=== PATIENT | male | born 1970 | race Two or more races ===

== ENCOUNTER 2019-06-04 13:13 | Inpatient (IN) | payer MEDICARE, MEDICAID ==
[~2019-06-04] VITALS: Ht 175.3 cm; Wt 83.1 kg
[2019-06-04 14:12] LABS: Basophils # (auto) 0.1 uL; Basophils % (auto) 0.8 % (0.0-2.0); Eosinophils # (auto) 0.4 uL; Eosinophils % (auto) 2.4 % (0.0-7.0); Hematocrit 28.5 % (41.0-53.0); Hemoglobin 8.9 g/dL (13.5-17.5); Lymphocytes # (auto) 1.3 uL; Lymphocytes % (auto) 8.6 % (10.0-50.0); Mean Corpuscular Hemoglobin 28.2 pg (28.0-32.0); Mean Corpuscular Hgb Conc. 31.3 g/dL (32.0-36.0); Monocytes # (auto) 0.7 uL; Monocytes % (auto) 4.6 % (0.0-12.0); Neutrophils # (auto) 13.1 uL; Neutrophils % (auto) 83.6 % (37.0-80.0); Platelet Count (auto) 354 10^3/uL (140-450); Red Blood Cells 3.16 10^6/uL (4.5-5.90); Red Cell Distribution Width 20.3 % (11.8-14.3); White Blood Cell 15.7 10^3/uL (4.4-10.8)
[2019-06-04] MEDS ORDERED: ETOMIDATE (2MG/ML) 20ML VIAL IV ONE ×2 (14:37→15:15)
[2019-06-04 14:38] LABS: Alanine Aminotransferase < 6 U/L (16-61); Anion Gap 8 (5-15); Blood Urea Nitrogen 35 mg/dL (7-18); Carbon Dioxide 28 mmol/L (21-32); Chloride 100 mmol/L (98-107); Glucose 96 mg/dL (74-106); Potassium 5.4 mmol/L (3.5-5.1); Sodium 136 mmol/L (136-145)
[2019-06-04 14:43] LABS: Alkaline Phosphatase 116 U/L (45-117); Aspartate Aminotransferase 17 U/L (15-37); BUN/Creatinine Ratio 7.9; Bilirubin, Total 0.5 mg/dL (0.2-1.0); GFR African American 19 mL/min; GFR Non-African American 15 mL/min; Total Protein 5.2 g/dL (6.4-8.2)
[2019-06-04] MEDS ORDERED: MORPHINE SULFATE 4 MG/ML SYR/VIAL ONE (14:55)
[2019-06-04] MEDS ORDERED: NOREPINEPHRINE 8 MG/250ML KIT 250 ML IV ONE (15:04)
[2019-06-04 15:08] LABS: INR 1.34 (0.9-1.15); Partial Thromboplastin Time 35.1 sec (23.64-32.05)
[2019-06-04] MEDS ORDERED: MORPHINE SULFATE 4 MG/ML SYR/VIAL IV ONE (15:15)
[2019-06-04] MEDS ORDERED: ALBUTEROL SULF 2.5 MG/0.5ML(0.5%) NEB SOLN NEB ONE ×2 (15:30→16:30)
[2019-06-04] MEDS ORDERED: IPRATROPIUM BROM 0.5 MG/2.5ML INH SOL NEB ONE (15:30)
[2019-06-04] MEDS ORDERED: VANCOMYCIN PER PHARMACY 0 MG IV SCH ×2 (15:45→16:30)
[2019-06-04] MEDS ORDERED: PANTOPRAZOLE 40 MG TAB PO ONE (15:45)
[2019-06-04] MEDS ORDERED: ACCU-CHEK COMFORT CURVE STRIP VI SCH (15:45)
[2019-06-04] MEDS ORDERED: DEXTROSE (50%) 50ML SYRG IV PRN (15:45)
[2019-06-04] MEDS ORDERED: cloNIDine 0.2 mg/24hr 7DAY PATCH TD ONE (15:45)
[2019-06-04] MEDS ORDERED: CLO01T (15:58)
[2019-06-04] MEDS ORDERED: MERO500I3 (15:58)
[2019-06-04] MEDS ORDERED: NIFEDIPINE (15:58)
[2019-06-04] MEDS ORDERED: ATOR40TA52 (15:58)
[2019-06-04] MEDS ORDERED: SODIUM ZIRCONIUM CYCL 10 GM PAK PO ONE (16:30)
[2019-06-04] MEDS ORDERED: NITROGLYCERIN 0.4 MG SL TAB SL PRN (16:30)
[2019-06-04] MEDS ORDERED: CALCIUM GLUC 4.65meq/50ml D5AE 50 ML IV ONE (16:30)
[2019-06-04] MEDS ORDERED: MORPHINE SULF INJ 2 MG/ML SYRINGE 1ML IV PRN (16:30)
--- NOTE | 2019-06-04 16:30 | NUR ---
REPORT Report received from Elo. Patient observed in [facility], lethargic but arousable to name. Patient is alert and oriented to self, location, and situation. Patient able to follow simple commands. Afebrile. Physical assessment performed. Vitals stable. Patient on 15 L NRB mask, oxygen saturation 97%, lung sounds coarse rhonchi with crackles noted. Left lateral chest tube in place, patent connected to single atrium suction. Bed locked in lowest position, will continue to monitor.
--- NOTE | 2019-06-04 16:50 | NUR ---
CARES/LINEN Complete linen and gown change performed. Skin assessment performed. New emanuel pad placed over wounds on sacral area. Patient repositioned, tolerated activity well. Continue to monitor.
[2019-06-04] MEDS ORDERED: ALBUTEROL SULF 2.5 MG/0.5ML(0.5%) NEB SOLN NEB PRN (17:00)
[2019-06-04] MEDS ORDERED: SODIUM CHL 0.9% 1000 ML BAG XX ONE (17:00)
[2019-06-04] MEDS ORDERED: IPRATROPIUM BROM 0.5 MG/2.5ML INH SOL NEB PRN (17:00)
[2019-06-04] MEDS ORDERED: ALBUMIN 25% 100 ML IV ONE (17:00)
--- NOTE | 2019-06-04 17:08 | NUR ---
MD VISIT Jonah PROGRESSIVE CARE NURSE at bedside assessing chest tube drainage and patency.
--- NOTE | 2019-06-04 17:10 | NUR ---
MD VISIT at bedside assessing patient. MD reviewing chart. No new orders received at this time. Will continue to monitor.
[2019-06-04] MEDS: ACCU-CHEK COMFORT CURVE STRIP VI SCH ×6 (17:13→22:02)
--- NOTE | 2019-06-04 17:15 | NUR ---
DIALYSIS barrel header at bedside. Vitals stable at this time. Pt tolerating treatment.
[2019-06-04] MEDS: HYDROmorphone HCL 2 MG/ML VL IV PRN (17:42)
--- NOTE | 2019-06-04 17:42 | NUR ---
PAIN Patient complained of 8/10 body pain, requesting pain medication. PRN medication given, will continue to monitor and reassess pain.
[2019-06-04] MEDS: SEVELAMER 800 MG TAB PO SCH (17:44)
[2019-06-04] MEDS: LEVOFLOXACIN 250MG 50 ML IV SCH (17:44)
--- NOTE | 2019-06-04 17:44 | NUR ---
OXYGENATION Decreased oxygen to 12 L NRB mask. Oxygen saturation maintaining 100%
--- NOTE | 2019-06-04 17:58 | NUR ---
OXYGENATION Decreased oxygen to 10L NRB mask. Oxygen saturation maintaining 990%
[2019-06-04] MEDS ORDERED: HYDROmorphone HCL 2 MG/ML VL IV ONE (18:00)
[2019-06-04] MEDS ORDERED: SEVELAMER 800 MG TAB PO ONE (18:00)
[2019-06-04] MEDS ORDERED: oxyCODONE ER 10 MG TAB PO ONE (18:00)
--- NOTE | 2019-06-04 18:11 | NUR ---
OXYGENATION Decreased oxygen to 8L NRB mask. Oxygen saturation maintaining 99%
--- NOTE | 2019-06-04 18:33 | NUR ---
OXYGENATION Decreased oxygen to 6L nasal cannula. Oxygen saturation maintaining 96-97%. Will continue to monitor.
--- NOTE | 2019-06-04 18:58 | NUR ---
MD VISIT at bedside assessing patients chest tube. MD does not want to touch or advance chest tube at this time. CXR ordered for AM.
--- NOTE | 2019-06-04 19:26 | NUR ---
REPORT Report given to Gisell IRVIN, care endorsed.
[2019-06-04] MEDS ORDERED: VANCOMYCIN 1GM/250ML 250 ML IV ONE (19:30)
[2019-06-04] MEDS: OXYCODONE W/ ACETAMINOPHEN 5/325MG TABLET PO PRN (20:29)
[2019-06-04] MEDS ORDERED: METOCLOPRAMIDE HCL 10 MG TAB PO ONE (22:00)
[2019-06-04] MEDS ORDERED: LABETALOL HCL 200 MG TAB PO ONE (22:00)
[2019-06-04] MEDS ORDERED: NIFEdipine ER 30 MG TAB PO ONE (22:00)
[2019-06-04 22:06] VITALS: BP 128/104
[2019-06-04] MEDS: ATORVASTATIN 20 MG TAB PO SCH (22:27)
[2019-06-04] MEDS: LEVETIRACETAM 500 MG TAB PO SCH (22:27)
--- NOTE | 2019-06-04 23:30 | NUR ---
Wound pictures: Pictures were taken of patient's wounds, but patient refused to allow RN to assess and take photo of wound to left lower buttocks.
--- NOTE | 2019-06-04 23:30 | NUR ---
Telemetry admit from ER SAMANIEGOSTEPHAN HERBERT admitted to Telemetry unit after SBAR received. Patient oriented to ROXANN GONZÁLES RN primary RN, unit, room, bed, and unit policies regarding patient care and visiting hours. Patient now on continuous telemetry monitoring, tele box #11 . Patient placed on bedside oxygen, weighed by bedscale and encouraged to call if they need something. All questions and concerns addressed, patient verbalized understanding.
[2019-06-05] MEDS: ACCU-CHEK COMFORT CURVE STRIP VI SCH ×6 (02:03→21:26)
[2019-06-05 05:00] VITALS: BP 127/67
[2019-06-05 06:28] LABS: INR 1.37 (0.9-1.15); Partial Thromboplastin Time 36.5 sec (23.64-32.05)
[2019-06-05 06:30] LABS: Basophils # (auto) 0.1 uL; Basophils % (auto) 0.6 % (0.0-2.0); Eosinophils # (auto) 0.4 uL; Eosinophils % (auto) 2.8 % (0.0-7.0); Hematocrit 27.4 % (41.0-53.0); Hemoglobin 8.7 g/dL (13.5-17.5); Lymphocytes # (auto) 1.4 uL; Lymphocytes % (auto) 9.3 % (10.0-50.0); Mean Corpuscular Hemoglobin 29.2 pg (28.0-32.0); Mean Corpuscular Hgb Conc. 31.8 g/dL (32.0-36.0); Mean Corpuscular Volume 91.9 fL (80.0-100.0); Monocytes # (auto) 0.7 uL; Monocytes % (auto) 4.4 % (0.0-12.0); Neutrophils # (auto) 12.8 uL; Neutrophils % (auto) 82.9 % (37.0-80.0); Nucleated Red Blood Cells % 0.1 %; Platelet Count (auto) 290 10^3/uL (140-450); Red Blood Cells 2.98 10^6/uL (4.5-5.90); White Blood Cell 15.4 10^3/uL (4.4-10.8)
[2019-06-05 06:37] LABS: Red Cell Distribution Width 20.5 % (11.8-14.3)
[2019-06-05 06:40] LABS: Albumin 2.1 g/dL (3.4-5.0); Anion Gap 9 (5-15); BUN/Creatinine Ratio 7.3; Blood Urea Nitrogen 25 mg/dL (7-18); Calcium 8.3 mg/dL (8.5-10.1); Carbon Dioxide 29 mmol/L (21-32); Chloride 101 mmol/L (98-107); GFR African American 25 mL/min; GFR Non-African American 21 mL/min; Glucose 144 mg/dL (74-106); Potassium 4.3 mmol/L (3.5-5.1); Sodium 139 mmol/L (136-145)
[2019-06-05 06:43] LABS: Alanine Aminotransferase < 6 U/L (16-61); Alkaline Phosphatase 109 U/L (45-117); Aspartate Aminotransferase 12 U/L (15-37); Bilirubin, Total 0.6 mg/dL (0.2-1.0); Total Protein 5.8 g/dL (6.4-8.2)
--- NOTE | 2019-06-05 07:15 | NUR ---
Spoke to Ean Mckenzie NP Hospitalist Orders received, read back and verified. Will obtain an ABG as requested. Will monitor patient.
--- NOTE | 2019-06-05 08:00 | NUR ---
Opening Note Assumed care of patient, he is A & O x4, patient is lethargic, no s/s of distress at this time. Chest tube is intact and set up at bedside to gravity, not connected to suction at this time. POC discussed with patient, he was able to inform this RN that his dialysis schedule is , , Sat. He had dialysis yesterday. Patient is on 5 L nasal cannula. He is sitting up to eat breakfast at this time. Bed is in low, locked position, bed alarm on, call light within reach. Will continue to monitor Q1h and PRN.
[2019-06-05 09:00] VITALS: BP 140/63
[2019-06-05] MEDS: SEVELAMER 800 MG TAB PO SCH ×3 (09:38→18:55)
[2019-06-05] MEDS: LEVETIRACETAM 500 MG TAB PO SCH ×2 (09:39→21:26)
[2019-06-05] MEDS: ASPirin-EC 81 mg tab PO SCH (09:39)
[2019-06-05] MEDS: LISINOPRIL 10 MG TAB PO SCH ×2 (09:39→21:26)
[2019-06-05] MEDS: PANTOPRAZOLE 40 MG TAB PO SCH (09:41)
[2019-06-05] MEDS: ENOXAPARIN SOD 30 MG/0.3 ML SYRINGE SC SCH (09:41)
[2019-06-05] MEDS: B-COMPLEX W/ C & FOLIC ACID(NEPHROVITE TAB) PO SCH (09:41)
[2019-06-05] MEDS: HYDROmorphone HCL 2 MG/ML VL IV PRN ×2 (09:42→18:54)
[2019-06-05] MEDS ORDERED: B-COMPLEX W/ C & FOLIC ACID(NEPHROVITE TAB) PO ONE (10:00)
--- NOTE | 2019-06-05 10:00 | NUR ---
Patient refuses to be turned to offload pressure, he does not want to have a pillow wedge. Will continue to attempt and offload patient sacral region at a later time. Will make sure to recommend a specialty mattress to wound care to be ordered.
--- NOTE | 2019-06-05 10:30 | NUR ---
WOUND CARE NOTE: IN TO SEE PATIENT AT THIS TIME PER WOUND CARE CONSULT REQUEST. PATIENT WAS NOTED UPON ADMIT TO HAVE MULTIPLE WOUNDS. WOUND PHOTOGRAPHS TAKEN AT THAT TIME BY BEDSIDE NURSE FOR REFERENCE, WOUND CONSULT ORDERED. PATIENT ADMITTED TO [facility] WITH DIAGNOSIS OF ACUTE RESPIRATORY FAILURE. CURRENT BOB SCORE IS 14. PATIENT HAS HISTORY WITH DM, CHRONIC RENAL FAILURE WITH NEED FOR DIALYSIS, STAGE 4 PRESSURE ULCER TO SACRUM. PATIENT IS NON AMBULATORY, MAX ASSIST FOR HIS ADL'S. HE IS RESISTANT TO TEACHING AT THIS POINT. PATIENT IS NOTED TO HAVE 2 WELL HEALED BKA STUMPS TO BLE. HE HAS HAD SURGICAL CLOSURE OF HIS STAGE 4 PRESSURE ULCER, WITH INTACT SUTURED INCISION NOTED TO MEDIAL SACRUM. WOUND IS DRAINING LIGHT AMOUNT OF SEROUS DRAINAGE WITH MILD ODOR HE HAS MASD WITH SKIN EROSION TO BILATERAL LOWER BUTTOCKS, AND STAGE 2 PRESSURE INJURY TO LEFT LOWER BUTTOCKS. ZGUARD APPLIED. MIDLINE ABDOMEN NOTED TO HAVE A 11 CM SURGICAL INCISION THAT IS STAPLED, WELL APPROXIMATED, LEFT OPEN TO AIR. ORDERED SPECIALTY AIR MATTRESS. PATIENT TO BE PLACED, PENDING DELIVERY BY NICOLE GARIBAY. RECOMMEND: FREQUENT TURN SCHEDULE Q 2 HOURS, PRN CONDITION PERMITS, WITH PRESSURE REDISTRIBUTION USING PILLOWS/WEDGES, DAILY DRESSING CHANGE TO SACRAL INCISION, BID/PRN APPLICATION TO MASD/PRESSURE INJURY TO LOWER BUTTOCKS/PERINEUM/SCROTUM, SPECIALTY AIR MATTRESS, DIETARY CONSULT, CONTINUED MONITORING BY WOUND CARE TEAM. Addendum: 06/05/19 at 1646 by Ruma Gonzalez RN Amended: Links added.
[2019-06-05 13:00] VITALS: BP 145/51
--- NOTE | 2019-06-05 16:00 | NUR ---
US called they cannot do the US of the left lung due to the chest tube tape causing obstruction, they recommend chest xray. Will notify Dr. Blanco.
--- NOTE | 2019-06-05 16:30 | NUR ---
Paged Dr. Blanco, patient chest tube having clotting and obstructing flow to drainage. There is also a large clot, and leakage from the insertion site. Bedding changed, dressing reinforced. Patient with no s/s of distress at this time.
--- NOTE | 2019-06-05 16:51 | NUR ---
Dr. Blanco returned page, he stated "I will come and see the patient"
[2019-06-05 17:00] VITALS: BP 148/64
--- NOTE | 2019-06-05 17:10 | NUR ---
Spoke to Dr. Munson over the phone, notified him of the positive blood cultures and the chest tube management that was going on with the patient, that there was bleeding at the site and blood clots. No orders at this time.
--- NOTE | 2019-06-05 17:20 | NUR ---
Dr. Blanco at bedside, Recommending to call the ER and see if the can pull out chest tube at least or pull out and replace chest tube.Dr. Blanco states "the chest tube is no longer in appropriately." Patient is in no s/s of distress at this time, will continue to monitor. driver utility workerMattie at bedside, she stated "I will call the ER to check on availability of an MD to do the procedure."
--- NOTE | 2019-06-05 17:33 | NUR ---
Mattie RN, charge nurse called ER Spoke to the electromechanical equipment assembler in ER, there is no ER physician available at this time to change out or remove the chest tube, there will be a physician at 1900 who can do it, Dr. Olivares, recommending to call at shift change.
--- NOTE | 2019-06-05 18:00 | NUR ---
Spoke to Dr. Blanco Site Interpreter called ER charge to see what could be done about the chest tube, they recommended a CT chest. Dr. Blanco does not think it it necessary, he stated "the tube needs to be pulled out and replaced." Will notify dry house tender Venu
--- NOTE | 2019-06-05 18:20 | NUR ---
Respiratory note: ASSESSED PT FOR PRN MED NEB TX. PT IS CURRENTLY ON 5 L/M NC: HR 81, RR 18, SPO2 95%. PT SHOWS NO S/S OF SOB OR DISTRESS. MED NEB TX NOT INDICATED AT THIS TIME. PT KNOWS TO HAVE RESPIRATORY PAGED IS SOB OCCURS. WILL CONTINUE TO MONITOR.
--- NOTE | 2019-06-05 19:35 | NUR ---
Opening Shift Note Received report from Tiffanie IRVIN. Assumed care of patient, awake and alert. No S/S of distress/SOB or pain. Patient on 5L nasal canula. Chest tube insertion site is clotting, was informed from report to call ER physician to have it removed per Dr. Blanco. Bed locked in lowest position, side rails upx2, call light within reach. Instructed on POC and to call for assist PRN, will continue to monitor for changes Q1hr and PRN.
[2019-06-05] MEDS ORDERED: VANCOMYCIN 500 MG in D5W 5% 100 ML IV ONE (20:00)
--- NOTE | 2019-06-05 20:12 | NUR ---
buzzle buffer made aware of situation with chest tube. buzzle buffer called down in ER to check if ER physician can assess and take out chest tube but ER charge states that they are busy right now but will relay message to the physician. Will continue to monitor patient.
--- NOTE | 2019-06-05 20:36 | NUR ---
Spoke to Dr. Olivares and he states to order a chest xray and then call him when we get the results. Will carry out.
[2019-06-05] MEDS: ATORVASTATIN 20 MG TAB PO SCH (21:26)
[2019-06-05 22:00] VITALS: BP 132/45
--- NOTE | 2019-06-05 22:11 | NUR ---
CHEST XRAY RESULTS STILL PENDING AT THIS TIME.
--- NOTE | 2019-06-05 23:12 | NUR ---
Patient moved to a specialty mattress. Dressing on chest tube reinforced. Moderate clotting noted on site. Spoke to radiology regarding a stat read on the chest xray.
--- NOTE | 2019-06-06 00:45 | NUR ---
Dr. Olivares at bedside to remove chest tube.
[2019-06-06] MEDS: HYDROmorphone HCL 2 MG/ML VL IV PRN ×4 (01:04→22:34)
[2019-06-06] MEDS ORDERED: HYDROmorphone HCL 2 MG/ML VL IV ONE (01:15)
--- NOTE | 2019-06-06 01:24 | NUR ---
Chest tube removed, covered with steri strips, gauze and reinforced with tape. Total output is 65ml. Follow up chest x-ray in the morning. Patient tolerated well. Will continue to monitor.
[2019-06-06] MEDS: ACCU-CHEK COMFORT CURVE STRIP VI SCH ×6 (01:44→21:55)
[2019-06-06 05:09] VITALS: BP 151/53
[2019-06-06 07:10] LABS: Basophils # (auto) 0.1 uL; Hemoglobin 7.9 g/dL (13.5-17.5); Lymphocytes # (auto) 1.6 uL; Monocytes # (auto) 0.6 uL
[2019-06-06 07:11] LABS: Basophils % (auto) 0.8 % (0.0-2.0); Eosinophils # (auto) 0.9 uL; Eosinophils % (auto) 7.7 % (0.0-7.0); Mean Corpuscular Hgb Conc. 32.8 g/dL (32.0-36.0); Mean Corpuscular Volume 88.4 fL (80.0-100.0); Monocytes % (auto) 5.4 % (0.0-12.0); Neutrophils # (auto) 8.1 uL; Neutrophils % (auto) 72.1 % (37.0-80.0); Platelet Count (auto) 282 10^3/uL (140-450); Red Blood Cells 2.72 10^6/uL (4.5-5.90); Red Cell Distribution Width 19.7 % (11.8-14.3); White Blood Cell 11.2 10^3/uL (4.4-10.8)
--- NOTE | 2019-06-06 08:00 | NUR ---
Opening Shift Note Assumed care of patient, lethargic. No S/S of distress/SOB, 8/10 generalized pain. Ongoing hemodialysis. Instructed on POC and to call for assist PRN, will continue to monitor for changes Q1hr and PRN.
[2019-06-06] MEDS: SEVELAMER 800 MG TAB PO SCH ×3 (08:25→17:35)
[2019-06-06 09:00] VITALS: BP 136/60
[2019-06-06] MEDS: PANTOPRAZOLE 40 MG TAB PO SCH (10:01)
[2019-06-06] MEDS: B-COMPLEX W/ C & FOLIC ACID(NEPHROVITE TAB) PO SCH (10:01)
[2019-06-06] MEDS: ASPirin-EC 81 mg tab PO SCH (10:02)
[2019-06-06] MEDS: LEVETIRACETAM 500 MG TAB PO SCH ×2 (10:02→21:55)
[2019-06-06] MEDS: LISINOPRIL 10 MG TAB PO SCH ×2 (10:02→21:55)
[2019-06-06] MEDS: ENOXAPARIN SOD 30 MG/0.3 ML SYRINGE SC SCH (10:03)
--- NOTE | 2019-06-06 12:45 | NUR ---
Patient moved to room 234. Isolation for (+)MRSA both nares.
[2019-06-06 13:00] VITALS: BP 155/46
[2019-06-06 13:13] LABS: Hepatitis A Ab IgM Negative; Hepatitis B Core IgM Negative; Hepatitis B Surface Antigen Negative (Negative)
[2019-06-06 13:14] LABS: Hepatitis C Antibody Negative (Negative)
--- NOTE | 2019-06-06 14:00 | NUR ---
Patient been refusing to be turned to sides. Explained the risks and benefits but still patient adamantly refused. Will continue to monitor.
--- NOTE | 2019-06-06 14:39 | NUR ---
NUTRITION CONSULT/ASSESSMENT NOTES Please refer to link notes of nutrition screen form filed under the intervention section of the plan of care for further details. Est. Needs: 1800 kcal to 2150 kcal (25-30 kcal/kgBW), 85 gms to 115 gms pro (1.2-1.6 gms/kgBW d/t severe hypoalbuminemia, ESRD on HD). Will continue to monitor pertinent labs and reassess nutrient need prn Thank you for this consult. Addendum: 06/06/19 at [address] Amended: Links added.
[2019-06-06 14:42] LABS: Alanine Aminotransferase < 6 U/L (16-61); Anion Gap 4 (5-15); Aspartate Aminotransferase 9 U/L (15-37); BUN/Creatinine Ratio 6.6; Blood Urea Nitrogen 20 mg/dL (7-18); Carbon Dioxide 34 mmol/L (21-32); Chloride 107 mmol/L (98-107); GFR African American 29 mL/min; GFR Non-African American 24 mL/min; Glucose 221 mg/dL (74-106); Potassium 4.2 mmol/L (3.5-5.1); Sodium 145 mmol/L (136-145)
[2019-06-06 14:45] LABS: Alkaline Phosphatase 103 U/L (45-117); Bilirubin, Total 0.4 mg/dL (0.2-1.0); Total Protein 5.5 g/dL (6.4-8.2)
--- NOTE | 2019-06-06 15:34 | NUR ---
Respiratory note: ASSESSED PATIENT FOR PRN BREATHING TX. PATIENT IS SLEEPING AND THEN WOKE UP AND WAS AWARE. NO RESPIRATORY DISTRESS NOTED OR STATED. PATIENT IS AWARE TO HAVE RT PAGED IF BREATHING TX NEEDED. PATIENT IS ON 5 L NASAL CANNULA, TITRATED FIO2 DOWN TO 3 L NASAL CANNULA SPO2 IS MAINTAINING AT 100%. WILL CONTINUE TO MONITOR PATIENT.
[2019-06-06 17:00] VITALS: BP 153/57
--- NOTE | 2019-06-06 17:09 | NUR ---
assessment Patient is a 48 year old male who is answering questions appropriately. Per patient prior to admission he was at [facility]. Per patient he will return to [facility] on discharge. Per patient he is on dialysis T TH SAT with [facility]. I informed patient he has a right to speak to a manager social responsibility regarding all care. I informed patient he has a right to participate in any and all discharge planning. Patient does not have a POA and advanced directive. I have offered patient information on POA and advanced directives. I informed the patient the advantages and benefits of having an Advanced Directive. Patient verbalized understanding and agreed to discharge plan. Addendum: 06/06/19 at 1712 by Hetal IRVING Amended: Links added.
[2019-06-06] MEDS: LEVOFLOXACIN 250MG 50 ML IV SCH (17:40)
--- NOTE | 2019-06-06 18:09 | NUR ---
Discharge planning per consult, patient has orders to return to [facility]. Referral faxed. Patient is clear to return upon discharge. Addendum: 06/06/19 at 1810 by CAIN DAVIS Amended: Links added.
--- NOTE | 2019-06-06 18:13 | NUR ---
Discharge planning per consult, patient has orders to dc to [facility] upon discharge. Referral was faxed, placed a follow up call, spoke with Velma who advised that they will accept patient back once discharged. Addendum: 06/06/19 at 1820 by CAIN DAVIS Amended: Links added.
[2019-06-06] MEDS: OXYCODONE W/ ACETAMINOPHEN 5/325MG TABLET PO PRN (19:11)
--- NOTE | 2019-06-06 19:40 | NUR ---
Opening Shift Note Assumed care of patient, asleep at this time. Respirations even and unlabored. No S/S of distress/SOB or pain. Patient on 5L nasal canula. Bed locked in lowest position, side rails upx2, call light within reach. Instructed on POC and to call for assist PRN, will continue to monitor for changes Q1hr and PRN.
[2019-06-06 21:21] VITALS: BP 140/71
[2019-06-06] MEDS: ATORVASTATIN 20 MG TAB PO SCH (21:55)
--- NOTE | 2019-06-06 22:31 | NUR ---
Respiratory note: NO PRN TX GIVEN AT THIS TIME, NOT INDICATED. SPO2 100%, HR 73, RR 18.
[2019-06-07] MEDS: ACCU-CHEK COMFORT CURVE STRIP VI SCH ×6 (02:00→21:36)
[2019-06-07 04:33] VITALS: BP 158/64
[2019-06-07] MEDS: OXYCODONE W/ ACETAMINOPHEN 5/325MG TABLET PO PRN (06:27)
[2019-06-07] MEDS: SEVELAMER 800 MG TAB PO SCH ×3 (07:55→18:58)
[2019-06-07 08:41] VITALS: BP 158/43
[2019-06-07] MEDS: PANTOPRAZOLE 40 MG TAB PO SCH (10:10)
[2019-06-07] MEDS: B-COMPLEX W/ C & FOLIC ACID(NEPHROVITE TAB) PO SCH (10:10)
[2019-06-07] MEDS: ASPirin-EC 81 mg tab PO SCH (10:10)
[2019-06-07] MEDS: LISINOPRIL 10 MG TAB PO SCH ×2 (10:11→21:35)
[2019-06-07] MEDS: HYDROmorphone HCL 2 MG/ML VL IV PRN ×3 (10:11→20:37)
[2019-06-07] MEDS: LEVETIRACETAM 500 MG TAB PO SCH ×2 (10:11→21:35)
[2019-06-07] MEDS: ENOXAPARIN SOD 30 MG/0.3 ML SYRINGE SC SCH (10:12)
--- NOTE | 2019-06-07 10:30 | NUR ---
Patient still refuses to be turned to sides.
[2019-06-07 13:00] VITALS: BP 189/56
--- NOTE | 2019-06-07 13:06 | NUR ---
ASSESSED PT FOR MED NEB PRN TX, PT ON RA WITH SPO2 98%, HR 79, RR 16, WITH CLEAR/DIMINISHED BS. PT IN NO RESPIRATORY DISTRESS NO INDICATION FOR MED NEB TX AT THIS TIME.
--- NOTE | 2019-06-07 13:20 | NUR ---
BP-189/57, referred to Dr. Munson with orders received. Will continue to monitor.
[2019-06-07] MEDS ORDERED: NIFEdipine 10 MG CAP PO PRN ×4 (13:30→14:00)
[2019-06-07] MEDS: INSULIN LISPRO (HUMAN) 100 UNITS/ML ML SC SCH ×3 (14:00→21:35)
--- NOTE | 2019-06-07 14:06 | NUR ---
Discharge planning per consult, patient has orders to return to [facility] upon discharge. Referral faxed to [facility], placed a follow up call, spoke with Velma and was advised Addendum: 06/07/19 at 1430 by CAIN DAVIS Amended: Links added.
[2019-06-07] MEDS: NIFEdipine 10 MG CAP PO PRN (14:26)
--- NOTE | 2019-06-07 14:27 | NUR ---
Discharge planning per consult, patient has orders to dc to [facility] on discharge. Referral faxed, placed a follow up call, spoke with Velma and was advised that patient will be accepted to room [address] Arora upon discharge. Addendum: 06/07/19 at 1430 by CAIN DAVIS Amended: Links added.
[2019-06-07] MEDS: MUPIROCIN 2% OINT 15gm or 22gm EACHNOSTRI SCH ×2 (15:56→21:34)
[2019-06-07 17:00] VITALS: BP 122/45
--- NOTE | 2019-06-07 17:30 | NUR ---
Sponge bath and bed change done.
--- NOTE | 2019-06-07 17:45 | NUR ---
Change of sacral optifoam dressing done.
[2019-06-07] MEDS: Nepro With Carbsteady Vanilla 8oz Carton PO SCH (18:58)
[2019-06-07] MEDS: Pro-Stat SF 30ml Vanilla PO SCH (18:58)
--- NOTE | 2019-06-07 18:58 | NUR ---
Dr. Volodymyr Kidd-nephrology at bedside. Patient is advised. Patient will have another dialysis tomorrow. Per Dr. Kidd he will inform the hospital education coordinator.
--- NOTE | 2019-06-07 19:39 | NUR ---
received pt from day rn poc reviewed
[2019-06-07] MEDS: ATORVASTATIN 20 MG TAB PO SCH (21:35)
[2019-06-07 22:06] VITALS: BP 138/90
--- NOTE | 2019-06-07 22:09 | NUR ---
resting comfortable after pain meds given, turn q2hr repositioned with hob up, contact isolation observed
--- NOTE | 2019-06-07 22:29 | NUR ---
Respiratory note: PT SEEN AND ASSESSED FOR PRN MED NEB TX AT 2229. TX NOT INDICATED AT THIS TIME. PT DISPLAYING NO SIGNS OF DISTRESS. PT WAS SLEEPING WHEN ENTERING THE ROOM. HR 73 RR 20 POX 99% ON 3L NASAL CANNULA.
[2019-06-08] VITALS (8 sets, daily range): BP systolic 132–216; BP diastolic 38–105
[2019-06-08] MEDS: INSULIN LISPRO (HUMAN) 100 UNITS/ML ML SC SCH ×6 (02:00→22:00)
[2019-06-08] MEDS: ACCU-CHEK COMFORT CURVE STRIP VI SCH ×6 (02:00→22:00)
[2019-06-08] MEDS: HYDROmorphone HCL 2 MG/ML VL IV PRN ×3 (03:20→19:38)
--- NOTE | 2019-06-08 07:01 | NUR ---
report given to am nurse poc reviewed
--- NOTE | 2019-06-08 08:05 | NUR ---
Opening Note Assumed care of patient, he is A & O x4, no s/s of distress at this time. Patient is arousable to his name. POC discussed, will continue to monitor Q1h and PRN. Bed is in low, locked position, call light within reach. Patient is on a specialty mattress.
[2019-06-08] MEDS: SEVELAMER 800 MG TAB PO SCH ×3 (09:06→17:40)
[2019-06-08] MEDS: LEVETIRACETAM 500 MG TAB PO SCH ×2 (09:07→21:46)
[2019-06-08] MEDS: MUPIROCIN 2% OINT 15gm or 22gm EACHNOSTRI SCH ×2 (09:07→23:24)
[2019-06-08] MEDS: B-COMPLEX W/ C & FOLIC ACID(NEPHROVITE TAB) PO SCH (09:08)
[2019-06-08] MEDS: ENOXAPARIN SOD 30 MG/0.3 ML SYRINGE SC SCH (09:08)
[2019-06-08] MEDS: PANTOPRAZOLE 40 MG TAB PO SCH (09:08)
[2019-06-08] MEDS: ASPirin-EC 81 mg tab PO SCH (09:08)
[2019-06-08] MEDS: Nepro With Carbsteady Vanilla 8oz Carton PO SCH ×2 (09:18→17:41)
[2019-06-08] MEDS: Pro-Stat SF 30ml Vanilla PO SCH ×2 (09:19→17:41)
--- NOTE | 2019-06-08 10:00 | NUR ---
PT REFUSED TO BE ASSESSED FOR MED NEB BREATHING TX. RN AT BEDSIDE. NO DISTRESS NOTED. WILL CONTINUE TO MONITOR PT.
--- NOTE | 2019-06-08 11:00 | NUR ---
bulldozer operator at bedside.
[2019-06-08] MEDS ORDERED: SODIUM CHL 0.9% 1000 ML BAG XX ONE (11:30)
[2019-06-08 13:35] LABS: Basophils # (auto) 0.1 uL; Eosinophils # (auto) 0.9 uL; Eosinophils % (auto) 10.4 % (0.0-7.0); Hematocrit 24.4 % (41.0-53.0); Hemoglobin 8.2 g/dL (13.5-17.5); Lymphocytes # (auto) 1.3 uL; Lymphocytes % (auto) 16.2 % (10.0-50.0); Mean Corpuscular Hemoglobin 29.2 pg (28.0-32.0); Mean Corpuscular Hgb Conc. 33.4 g/dL (32.0-36.0); Mean Corpuscular Volume 87.2 fL (80.0-100.0); Monocytes # (auto) 0.3 uL; Monocytes % (auto) 3.5 % (0.0-12.0); Neutrophils # (auto) 5.7 uL; Neutrophils % (auto) 68.9 % (37.0-80.0); Platelet Count (auto) 276 10^3/uL (140-450); Red Cell Distribution Width 19.8 % (11.8-14.3); White Blood Cell 8.3 10^3/uL (4.4-10.8)
[2019-06-08] MEDS ORDERED: VANCOMYCIN 500 MG in D5W 5% 100 ML IV ONE (16:00)
[2019-06-08] MEDS: LISINOPRIL 10 MG TAB PO SCH ×2 (16:12→21:49)
[2019-06-08] MEDS: LEVOFLOXACIN 250MG 50 ML IV SCH (17:40)
--- NOTE | 2019-06-08 17:45 | NUR ---
BLOOD SUGAR @ 1700 IS 191.
--- NOTE | 2019-06-08 18:43 | NUR ---
PRN MED NEB ASSESSMENT. NO DISTRESS NOTED. PT [id number] SOB AT THIS TIME. POX 100% ON 3L NC HR 82 RR 20. TX NOT GIVEN.
--- NOTE | 2019-06-08 19:17 | NUR ---
received pt from day rn poc reviewed
--- NOTE | 2019-06-08 20:59 | NUR ---
PT OBSERVED RESTING WITH HOB UP RESP EVEN AND UNLABORED, C/O PAIN 04/16 GENERAL BODY ACHES,
[2019-06-08] MEDS: EPOETIN ALFA 10,000 UNIT/1 ML VIAL SC ONE ×2 (21:00→23:23)
[2019-06-08] MEDS: NIFEdipine 10 MG CAP PO PRN (21:45)
[2019-06-08] MEDS: ATORVASTATIN 20 MG TAB PO SCH (21:46)
--- NOTE | 2019-06-08 23:14 | NUR ---
pt had large bm bathed turned and repositioned with hob up, linen change
--- NOTE | 2019-06-08 23:36 | NUR ---
dr orjas at bedside
[2019-06-09] MEDS: OXYCODONE W/ ACETAMINOPHEN 5/325MG TABLET PO PRN (01:51)
[2019-06-09] MEDS: INSULIN LISPRO (HUMAN) 100 UNITS/ML ML SC SCH ×6 (02:00→22:00)
[2019-06-09] MEDS: ACCU-CHEK COMFORT CURVE STRIP VI SCH ×6 (03:49→22:23)
[2019-06-09] MEDS: HYDROmorphone HCL 2 MG/ML VL IV PRN ×5 (04:03→22:15)
[2019-06-09 05:28] VITALS: BP 160/64
[2019-06-09] MEDS: NIFEdipine 10 MG CAP PO PRN ×2 (06:35→12:45)
[2019-06-09 08:00] VITALS: BP 151/54
[2019-06-09] MEDS: Nepro With Carbsteady Vanilla 8oz Carton PO SCH ×2 (08:00→18:00)
[2019-06-09] MEDS: Pro-Stat SF 30ml Vanilla PO SCH ×2 (08:00→18:00)
--- NOTE | 2019-06-09 08:00 | NUR ---
Opening Shift Note Assumed care of patient, awake and alert. No S/S of distress/SOB, 8/10 generalized body pain. Will medicate with Dilaudid 0.5mg IV as ordered. Encouraged turning to sides but still refused. Patient is interacting appropriately but very depressed. Instructed on POC and to call for assist PRN, will continue to monitor for changes Q1hr and PRN.
--- NOTE | 2019-06-09 08:08 | NUR ---
Respiratory note: PRN MED NEB ASSESSMENT. NO DISTRESS NOTED. PT DENIES SOB AT THIS TIME. POX 100% ON 2L NC HR 67 RR 16. TX NOT GIVEN. PATIENT KNOWS TO HAVE RT PAGED IF TX IS NEEDED.
[2019-06-09] MEDS: SEVELAMER 800 MG TAB PO SCH ×3 (08:21→17:28)
--- NOTE | 2019-06-09 08:24 | NUR ---
Patient refused to take nutritional supplements, stated feeling of nausea and vomiting after.
[2019-06-09] MEDS: ENOXAPARIN SOD 30 MG/0.3 ML SYRINGE SC SCH (09:55)
[2019-06-09] MEDS: ASPirin-EC 81 mg tab PO SCH (09:56)
[2019-06-09] MEDS: B-COMPLEX W/ C & FOLIC ACID(NEPHROVITE TAB) PO SCH (09:56)
[2019-06-09] MEDS: LEVETIRACETAM 500 MG TAB PO SCH ×2 (09:56→22:14)
[2019-06-09] MEDS: PANTOPRAZOLE 40 MG TAB PO SCH (09:56)
[2019-06-09] MEDS: LISINOPRIL 10 MG TAB PO SCH ×2 (09:56→22:14)
[2019-06-09] MEDS: MUPIROCIN 2% OINT 15gm or 22gm EACHNOSTRI SCH ×2 (09:57→22:14)
[2019-06-09] MEDS ORDERED: LEVOFLOXACIN 250MG 50 ML IV SCH (10:15)
--- NOTE | 2019-06-09 12:17 | NUR ---
Nutrition Follow-up Notes Wt.: 84 kg Pt. dislikes Nepro shakes as it causes pt. to feel nauseated; usually does not touch them. Receives Nepro BID w/meals. Otherwise tolerating renal standard/CCHO diet with no associated GI distress reported. PO variable, but mostly 50-75%. Est. Needs: 1800 kcal to 2150 kcal (25-30 kcal/kgBW), 85 gms to 115 gms pro (1.2-1.6 gms/kgBW d/t severe hypoalbuminemia, ESRD on HD). Will continue to monitor pertinent labs and reassess nutrient need prn Labs: No new labs today 06/09, all POC glucose <180 mg/dL x 2 days Skin: Elliot 11, high risk, Stg II P/U to B/L buttocks, MASD GI: BM x 1 today PES: 1.) Altered nutrition related lab values RT acute/chronic medical condition AEB hyperglycemia, elev. renal labs, hypocalcemia and severe hypoalbuminemia (ongoing) 2.) Increased nutrient needs RT current/chronic medical/nutritional status AEB ESRD on HD, severe hypoalbuminemia, wound healing, <75% consumed meals (ongoing) Monitor: PO intake, tolerance to diet, skin integrity, GI function, labs F/U: MR 3-5 days Rec. 1) DC Nepro; pt. refuses ONS d/t dislike and associated GI distress 2) Replace with Kye BID for wound healing support 3) Consider Vit C for wound healing; dosage per provider orders, or 500 mg BID 4) Continue plan of care
[2019-06-09] MEDS ORDERED: ONDANSETRON HCL 4 MG/2 ML VIAL IV PRN (12:30)
[2019-06-09] MEDS ORDERED: METOCLOPRAMIDE HCL 10 MG TAB PO PRN (13:00)
--- NOTE | 2019-06-09 13:05 | NUR ---
Clarification of Metoclopramide orders discussed with Dr. Munson, may give Metoclopramide 10mg IV every 8 hours. Will continue care.
[2019-06-09] MEDS: METOCLOPRAMIDE HCL 5MG/ml INJ 2ml VIAL IV SCH ×2 (13:38→22:14)
[2019-06-09] MEDS ORDERED: METOCLOPRAMIDE HCL 5MG/ml INJ 2ml VIAL IV SCH (14:00)
[2019-06-09 17:00] VITALS: BP 134/55
--- NOTE | 2019-06-09 19:20 | NUR ---
Opening Shift Note Received report from Ban IRVIN. Assumed care of patient, awake and alert, eating dinner. No S/S of distress/SOB, with moderate pain. Instructed on POC and to call for assist PRN. Fall precaution measures in place, will continue to monitor for changes Q1hr and PRN.
--- NOTE | 2019-06-09 21:28 | NUR ---
RT NOTE PT WAS SEEN BY RT FOR PRN HHN TX. PT IS SLEEPING BUT EASILY AWAKENED. NO SOB OR DISTRESS NOTED. HR 77, RR 16, BS CLEAR/DIM, POX 97% ON 1L NASAL CANNULA. PT REQUESTING PAIN MEDICATION, ALBARO PALENCIA AWARE. NO PRN TX INDICATED AT THIS TIME. CONT ORDERED. Addendum: 06/09/19 at 2130 by Angeles Coley RT Amended: Links added.
[2019-06-09 22:00] VITALS: BP 149/63
[2019-06-09] MEDS: ATORVASTATIN 20 MG TAB PO SCH (22:13)
[2019-06-10] MEDS: INSULIN LISPRO (HUMAN) 100 UNITS/ML ML SC SCH ×4 (02:00→14:00)
[2019-06-10] MEDS: ACCU-CHEK COMFORT CURVE STRIP VI SCH ×4 (02:12→14:30)
[2019-06-10] MEDS: HYDROmorphone HCL 2 MG/ML VL IV PRN ×3 (02:28→14:29)
[2019-06-10 05:00] VITALS: BP 192/77
[2019-06-10] MEDS: OXYCODONE W/ ACETAMINOPHEN 5/325MG TABLET PO PRN ×2 (06:10→13:01)
[2019-06-10] MEDS: METOCLOPRAMIDE HCL 5MG/ml INJ 2ml VIAL IV SCH ×2 (06:10→16:22)
[2019-06-10] MEDS: NIFEdipine 10 MG CAP PO PRN ×2 (06:14→16:48)
[2019-06-10 08:00] VITALS: BP 138/40
[2019-06-10] MEDS: Nepro With Carbsteady Vanilla 8oz Carton PO SCH (08:00)
[2019-06-10] MEDS: Pro-Stat SF 30ml Vanilla PO SCH (08:00)
--- NOTE | 2019-06-10 08:00 | NUR ---
Opening Shift Note Assumed care of patient, awake and oriented. No S/S of distress/SOB, 8/10 generalized body pain. Instructed on POC and to call for assist PRN, will continue to monitor for changes Q1hr and PRN.
[2019-06-10] MEDS: SEVELAMER 800 MG TAB PO SCH ×2 (08:18→13:00)
--- NOTE | 2019-06-10 09:37 | NUR ---
Respiratory note: Assessed pt for prn medneb tx. HR 68, RR 14, POX 99% on 1L nasal cannula. Breath sounds clear/diminished towards bases. Pt denies any SOB. No s/s of respiratory distress at this time. Medneb tx not indicated at this time. Advised pt to call for RT if needed.
[2019-06-10] MEDS: B-COMPLEX W/ C & FOLIC ACID(NEPHROVITE TAB) PO SCH (10:24)
[2019-06-10] MEDS: ENOXAPARIN SOD 30 MG/0.3 ML SYRINGE SC SCH (10:24)
[2019-06-10] MEDS: LEVETIRACETAM 500 MG TAB PO SCH (10:24)
[2019-06-10] MEDS: ASPirin-EC 81 mg tab PO SCH (10:25)
[2019-06-10] MEDS: LISINOPRIL 10 MG TAB PO SCH (10:25)
[2019-06-10] MEDS: PANTOPRAZOLE 40 MG TAB PO SCH (10:25)
[2019-06-10] MEDS: MUPIROCIN 2% OINT 15gm or 22gm EACHNOSTRI SCH (11:00)
[2019-06-10 12:00] VITALS: BP 163/70
[2019-06-10] MEDS ORDERED: SODIUM CHL 0.9% 1000 ML BAG XX ONE (12:30)
[2019-06-10] MEDS ORDERED: VANCOMYCIN 500 MG in D5W 5% 100 ML IV ONE ×2 (13:00→17:00)
--- NOTE | 2019-06-10 15:00 | NUR ---
Unable to reach patient's brother Willis #[phone]. Per patient his brother may be back already in [place].
--- NOTE | 2019-06-10 16:00 | NUR ---
Hemodialysis done. 2liters out
[2019-06-10 17:00] VITALS: BP 155/42
[2019-06-10] MEDS ORDERED: LEVOFLOXACIN 250MG 50 ML IV SCH (17:00)
--- NOTE | 2019-06-10 17:00 | NUR ---
Discharge wound photos taken.
--- NOTE | 2019-06-10 17:05 | NUR ---
Called [facility] # [phone] 4x to give reports, but unable to get a hold of them.
--- NOTE | 2019-06-10 17:45 | NUR ---
Gave reports to Angy at [facility] #[phone].
--- NOTE | 2019-06-10 18:00 | NUR ---
Telebox removed and returned to ICU. Right upper arm PICC line maintained for continuation of IV antibiotics in [facility].
--- NOTE | 2019-06-10 18:45 | NUR ---
Patient transferred to [facility] via [facility] transported by [place] [facility] [place] [facility] [facility]. No distress noted.
[2019-06-10] MEDS ORDERED: EPOETIN ALFA 10,000 UNIT/1 ML VIAL SC ONE (21:00)
== END 2019-06-10 18:45 | DRG 871 ==
LOC: ER 13:13 → EDBD 13:13 → TELE 13:14 → TELE-EAST 23:30
PROVIDERS: ADMIT Nurse Practitioner Acute Care; ATTEND Internal Medicine
PROC: 5A1D70Z Performance of Urinary Filtration, Intermittent, Less than 6 Hours Per Day (ICD-10-PCS; principal; 2019-06-04)
PROC: 0W9B30Z Drainage of Left Pleural Cavity with Drainage Device, Percutaneous Approach (ICD-10-PCS; 2019-06-04)
PROC: 5A1D70Z Performance of Urinary Filtration, Intermittent, Less than 6 Hours Per Day (ICD-10-PCS; 2019-06-06)
PROC: 5A1D70Z Performance of Urinary Filtration, Intermittent, Less than 6 Hours Per Day (ICD-10-PCS; 2019-06-08)
PROC: 5A1D70Z Performance of Urinary Filtration, Intermittent, Less than 6 Hours Per Day (ICD-10-PCS; 2019-06-10)
DX: A41.1 Sepsis due to other specified staphylococcus (principal); E43 Unspecified severe protein-calorie malnutrition; I21.4 Non-ST elevation (NSTEMI) myocardial infarction; G93.41 Metabolic encephalopathy; N18.6 End stage renal disease; J96.01 Acute respiratory failure with hypoxia; I50.33 Acute on chronic diastolic (congestive) heart failure; J90 Pleural effusion, not elsewhere classified; I13.2 Hypertensive heart and chronic kidney disease with heart failure and with stage 5 chronic kidney disease, or end stage renal disease; D63.8 Anemia in other chronic diseases classified elsewhere; E87.5 Hyperkalemia; Z99.2 Dependence on renal dialysis; E11.22 Type 2 diabetes mellitus with diabetic chronic kidney disease; G40.909 Epilepsy, unspecified, not intractable, without status epilepticus; E11.51 Type 2 diabetes mellitus with diabetic peripheral angiopathy without gangrene; E78.5 Hyperlipidemia, unspecified; L89.150 Pressure ulcer of sacral region, unstageable; E11.649 Type 2 diabetes mellitus with hypoglycemia without coma; E11.43 Type 2 diabetes mellitus with diabetic autonomic (poly)neuropathy; K31.84 Gastroparesis; E87.6 Hypokalemia; F32.9 Major depressive disorder, single episode, unspecified; E11.65 Type 2 diabetes mellitus with hyperglycemia; F41.9 Anxiety disorder, unspecified; Z66 Do not resuscitate; Z79.4 Long term (current) use of insulin; Z89.512 Acquired absence of left leg below knee; Z88.0 Allergy status to penicillin; Z89.511 Acquired absence of right leg below knee; Z68.27 Body mass index [BMI] 27.0-27.9, adult; Z80.0 Family history of malignant neoplasm of digestive organs; Z83.3 Family history of diabetes mellitus; Z93.3 Colostomy status
CPT/HCPCS: 32551; 36415; 36600; 71045; 76604; 80053; 80074; 80202; 82565; 82805; 82962; 83605; 83735; 83880; 84484; 85025; 85610; 85730; 87040; 87077; 87081; 87186; 90935; 93005; 93306; 94640; 96365; 96367; 97110; 97530; 99291; G0378; J0610; J0885; J1642; J2405; J7060; P9047